=== PATIENT | female | born 1925 | race Caucasian/White ===

== ENCOUNTER 2016-07-17 12:47 | Day surgery (SDC) | payer MEDICARE, BC ==
[~2016-07-17 12:47] MED LIST: ATOR20TA15 PO; BENZ100 PO; CALC1TAB87 PO; CEFT250T8 PO; DENO60P SQ; ISOS30TA3 PO; LEVO75TA3 PO; METO100T9 PO; MIRTA15 PO; XARE15TA PO
[2016-07-17 13:17] VITALS: BP 156/109; PULSE 65; RESP 20; TEMP 97.4; O2SAT 98
[2016-07-17 13:46] LABS: AUTOMATED NEUTROPHIL # 3.6 TH/MM3 (1.8-7.7); BASOPHIL % 0.4 % (0.0-2.0); EOSINOPHIL # 0.1 TH/MM3 (0-0.4); EOSINOPHIL % 2.1 % (0.0-4.0); HEMATOCRIT 34.5 % (35.0-46.0); HEMO FLAGS DIFF FINAL; LYMPH % 33.9 % (9.0-44.0); LYMPHOCYTE # 2.2 TH/MM3 (1.0-4.8); MEAN CELL VOLUME 87.3 FL (80.0-100.0); MEAN CORPUSCULAR HEMOGLOBIN 28.3 PG (27.0-34.0); MEAN CORPUSCULAR HGB CONC 32.5 % (32.0-36.0); MONO % 7.4 % (0.0-8.0); NEUT % 56.2 % (16.0-70.0); PLATELET COUNT 190 TH/MM3 (150-450); RED BLOOD COUNT 3.96 MIL/MM3 (4.00-5.30); RED CELL DISTRIBUTION WIDTH 14.8 % (11.6-17.2); WHITE BLOOD COUNT 6.4 TH/MM3 (4.0-11.0)
[2016-07-17 13:56] LABS: APTT (PATIENT) 26.1 SEC (24.3-30.1); PROTHROMBIN TIME - PATIENT 11.3 SEC (9.8-11.6)
--- NOTE | 2016-07-17 14:12 | RADRPT ---
EXAM DATE/TIME: 07/17/2016 13:38 [facility] COMPARISON: US CAROTID ARTERIES, April 06, 2016, 15:46. EXTERNAL COMPARISON : [facility], CT THORAX, W/O CONTRAST, June 29, 2016 INDICATIONS : Left pleural effusion. MEDICAL HISTORY : Hypertension. Hypercholesterolemia. TIA. Coronary artery disease. Atrial fibrillation. Arthritis. Right breast cancer. SURGICAL HISTORY : Tonsillectomy. Cataract removal. Coronary stent. Right mastectomy. ENCOUNTER: Initial ACUITY: 1 day PAIN SCORE: 0/10 LOCATION: Left chest MEASUREMENTS: SKIN TO PARIETAL PLEURA: 1.5 cm SKIN TO MAX SAFE DEPTH: 3.9 cm ESTIMATED FLUID VOLUME: 406 cc FLUID COMPOSITION: simple FINDINGS: Pleural effusion as above. A omar was placed on the skin surface superficial to the pleural fluid col lection. CONCLUSION: 1. Uncomplicated marking of a pleural effusion as above. Tenzin Brewer MD on July 17, 2016 at 14:10 Board Certified Radiologist. This report was verified electronically.
[2016-07-17 14:45] VITALS: BP 153/100; PULSE 100; RESP 20; TEMP 98.7; O2SAT 100
[2016-07-17] MEDS ORDERED: HEPARIN SODIUM - IV 10,000 UNITS/10 ML VIAL ONE (14:56)
[2016-07-17 15:00] VITALS: BP 165/102; PULSE 69; RESP 20; O2SAT 98
[2016-07-17 15:15] VITALS: BP 164/98; PULSE 89; RESP 20; O2SAT 98
--- NOTE | 2016-07-17 15:23 | RADRPT ---
EXAM DATE/TIME: 07/17/2016 14:52 [facility] COMPARISON: RIBS RIGHT(W PA CXR MIN 3VWS), August 15, 2015, 17:36. INDICATIONS : Post thoracentesis left lung MEDICAL HISTORY : Hypertension. Cardiovascular disease. Carcinoma, breast. A fib, SURGICAL HISTORY : Tonsillectomy. Mastectomy, right. Coronary artery stent. ENCOUNTER: Subsequent ACUITY: 1 day PAIN SCORE: 0/10 LOCATION: Left chest FINDINGS: The heart is mildly enlarged. There is left basal pleural effusion and consolidation. There are COPD changes. Bone window images demonstrate healing fractures of the right posterior seventh and ninth ribs. These are new compared to previous. CONCLUSION: 1. New area of pleural effusion and consolidation in the left lung base. 2. COPD changes. Tenzin Brewer MD on July 17, 2016 at 15:19 Board Certified Radiologist. This report was verified electronically.
--- NOTE | 2016-07-17 16:08 | MR ---
cc: JOAN KING SANDRA L. M.D. DATE 07/17/2016 PROCEDURE Left thoracentesis. PREOPERATIVE DIAGNOSIS Left pleural effusion. PROCEDURE DETAILS Informed consent was obtained from the patient. The procedure and the complications including complications of anesthesia, pneumothorax requiring chest tube, bleeding complications, injury to the blood vessels, lungs, nerves, arrhythmia, hypoxia were explained and she consented for the procedure. The left side of the chest was marked with ultrasound and cleansed with chloraprep. 1% lidocaine infiltrative anesthesia was used. A 16 gauge Angiocath was introduced and thoracentesis was done. Yellow clear fluid was obtained. It was hooked up to vacuum bottle, 150 cc of fluid was removed, then the fluid stopped coming and the procedure was terminated. She tolerated the procedure well. The pleural fluid was sent for protein, glucose, LDH, cell count and differential, routine fungal, AFB, fungal cultures and cytology. A post-procedure chest x-ray ruled out pneumothorax. MD YUKI Urias/CELINA /3:02 PM /3:52 PM
[2016-07-17 16:10] LABS: PLEURAL FLUID LYMPHS 77 %; PLEURAL FLUID PH 8.5
[2016-07-17 16:14] LABS: TOTAL PROTEIN,PLEURAL FLUID 3.7 GM/DL
== END 2016-07-17 15:59 | disposition home or self-care (01) ==
LOC: HROP 12:47 → HRIP 12:53 → HROP 15:59
PROVIDERS: ATTEND Family Medicine
DX: J90 Pleural effusion, not elsewhere classified (principal); J44.9 Chronic obstructive pulmonary disease, unspecified; I25.10 Atherosclerotic heart disease of native coronary artery without angina pectoris; I48.91 Unspecified atrial fibrillation; I10 Essential (primary) hypertension; E78.00 Pure hypercholesterolemia, unspecified; Z95.5 Presence of coronary angioplasty implant and graft; Z85.3 Personal history of malignant neoplasm of breast
CPT/HCPCS: 32554; 71010; 76604; 82150; 82945; 82947; 83615; 83986; 84155; 84157; 85025; 85610; 85730; 87015; 87070; 87102; 87116; 87205; 87206; 88112; 88305; 89051; J1644

== ENCOUNTER 2016-10-03 06:15 | Emergency (ER) | payer MEDICARE, BC ==
[~2016-10-03] VITALS: Ht 170.2 cm; Wt 56.2 kg
[~2016-10-03 06:15] MED LIST changes: -BENZ100 PO; -CEFT250T8 PO; -ISOS30TA3 PO
[2016-10-03 06:17] VITALS: BP 150/92; PULSE 87; RESP 16; TEMP 97.5; O2SAT 96
[2016-10-03] MEDS ORDERED: MEGE40S PO (06:33)
[2016-10-03] MEDS ORDERED: ASPI81CH CHEW (06:33)
--- NOTE | 2016-10-03 06:47 | PD ---
HPI Chief Complaint: Musculoskeletal Complaint Time Seen by Provider: 06:32 Travel History International Travel<30 days: No Contact w/Intl Traveler<30days: No Traveled to known affect area: No History of Present Illness HPI The patient is an 89-year-old female who was walking across the floor of her home yesterday at 8 PM and felt a "click". She then felt pain in the lateral aspect of her left ankle and lateral aspect of her left foot. There was no trauma. It now hurts to bear weight or invert or everted the ankle. 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) Hypertension: Yes Musculoskeletal: Yes (Osteoporosis) Neurologic: Yes Psychiatric: No Respiratory: No Immunizations Current: Yes Myocardial Infarction: No Radiation Therapy: No Thyroid Disease: Yes Tetanus Vaccination: < 5 Years Influenza Vaccination: Yes ?: Not Menopausal: Yes : 6 Para: 5 Miscarriage: 1 Past Surgical History AICD: No Coronary Stent: Yes Endocrine Surgery: Yes Genitourinary Surgery: Yes Gynecologic Surgery: Yes ((R) mastectomy ) Pacemaker: No Tonsillectomy: Yes Social History Alcohol Use: No Tobacco Use: No Substance Use: No Allergies-Medications (Allergen,Severity, Reaction): Coded Allergies: Codeine (Verified Allergy, Severe, Hallucinations, 07/17/16) Gabapentin (Verified Allergy, Severe, Dizziness, 07/17/16) Oxycodone (Verified Allergy, Severe, Hallucinations, 07/17/16) Sulfa (Verified Allergy, Unknown, 10/03/16) MRI PRECAUTION (Verified Adverse Reaction, Unknown, Spinal cord stimulator , no info. 04/06/16 LRS., 07/17/16) Reported Meds & Prescriptions Reported Meds & Active Scripts Active Xarelto (Rivaroxaban) 15 Mg Tab 15 Mg PO DAILY Metoprolol Succinate ER 24 HR (Metoprolol Succinate) 100 Mg Tab 100 Mg PO DAILY@ 1600 Reported Megace Liq (Megestrol Acetate) 40 Mg/Ml Susp 525 Mg PO BID Aspirin 81 Mg Chew 81 Mg CHEW DAILY Prolia Inj (Denosumab) 60 Mg/Ml Inj 60 Mg SQ Q180D Calcium 600 with Vitamin D (Calcium Carbonate-Cholecalciferol) 600-400 mg-Unit Tab 1 Tab PO DAILY Mirtazapine 15 Mg Tab 15 Mg PO HS Atorvastatin (Atorvastatin Calcium) 20 Mg Tab 20 Mg PO HS Levothyroxine (Levothyroxine Sodium) 75 Mcg Tab 75 Mcg PO DIRECTED Review of Systems Except as stated in HPI: all other systems reviewed are Neg Physical Exam Narrative GENERAL: The patient is alert, oriented 3 and slight apparent distress with her left ankle discomfort. Her vital signs show blood pressure 150/92 but otherwise normal. SKIN: Focused skin assessment warm/dry. HEAD: Atraumatic. Normocephalic. EYES: Pupils equal and round. No scleral icterus. No injection or drainage. ENT: No nasal bleeding or discharge. Mucous membranes pink and moist. NECK: Trachea midline. No JVD. CARDIOVASCULAR: Regular rate and rhythm. No murmur appreciated. RESPIRATORY: No accessory muscle use. Clear to auscultation. Breath sounds equal bilaterally. GASTROINTESTINAL: Abdomen soft, non-tender, nondistended. Hepatic and splenic margins not palpable. MUSCULOSKELETAL: No obvious deformities. No clubbing. No cyanosis. No edema. Good capillary refill and pinprick is present distally on the left foot. There is tenderness on the posterior malleolar area and slight tenderness over the proximal fifth metatarsal on the left foot. There is no pain when squeezing the tibia/fibula together on the left. NEUROLOGICAL: Awake and alert. No obvious cranial nerve deficits. Motor grossly within normal limits. Normal speech. PSYCHIATRIC: Appropriate mood and affect; insight and judgment normal. Data Data Last Documented VS Vital Signs Date Time Temp Pulse Resp B/P Pulse Ox O2 Delivery O2 Flow Rate FiO2 10/03/16 06:17 97.5 87 16 150/92 96 Orders Ankle, Complete ([id number]) (10/03/16 06:37) Foot, Complete ([id number]) (10/03/16 06:37) MDM Medical Decision Making Medical Screen Exam Complete: Yes Emergency Medical Condition: Yes Medical Record Reviewed: Yes Differential Diagnosis Ankle sprain, ankle sprain, fracture distal fibula, fracture proximal fifth metatarsal Narrative Course It is now [address] Franklin will be taking over the patient now. José Miguel Waldron MD Oct 03, 2016 06:47
[2016-10-03] MEDS ORDERED: TYLETAB34 PO (08:14)
--- NOTE | 2016-10-03 08:17 | PD ---
Data Data Last Documented VS Vital Signs Date Time Temp Pulse Resp B/P Pulse Ox O2 Delivery O2 Flow Rate FiO2 10/03/16 06:17 97.5 87 16 150/92 96 Orders Ankle, Complete ([id number]) (10/03/16 06:37) Foot, Complete ([id number]) (10/03/16 06:37) Splint Or Brace Apply/Monitor (10/03/16 08:13) MDM Medical Record Reviewed: Yes Supervised Visit with KENNY: No Narrative Course Case is checked out to me by Dr. Waldron at 7 AM. This patient injured her left foot and x-ray was taken I reviewed the left ankle x-rays and the left foot x-rays which both demonstrate a nondisplaced fracture of the left fifth metatarsal I placed her in a posterior short-leg splint She already has a walker at home to use She will ice and elevate and follow-up with orthopedist or radio interference investigator I wrote her 15 pain pills but she says she has very little pain Diagnosis Primary Impression: Fracture of left foot Qualified Code: S92.902A - Fracture of left foot, closed, initial encounter Additional Instruction: The patient was warned about potential sedation for the medications they will receive on prescription. Follow up with radio interference investigator or orthopedist Ice and elevate left foot and limit weightbearing Med/Other Pt SpecificInfo: Prescription(s) given Scripts Acetaminophen-Codeine (Tylenol-Codeine #3)300-30 mg Tab1 Tab PO Q6HR PRN (PAIN) #15 TAB Ref 0 Prov:Danilo Franklin MD 10/03/16 Disposition: 01 DISCHARGE HOME Condition: Stable Danilo Franklin MD Oct 03, 2016 08:17
--- NOTE | 2016-10-03 09:14 | RADHPO ---
EXAM DATE/TIME: 10/03/2016 06:59 [facility] COMPARISON: No previous studies available for comparison. INDICATIONS : Left lateral ankle pain with no known injury. MEDICAL HISTORY : Hypercholesterolemia. Osteoporosis. Arthritis. Thyroid disease. TIA. A-fib. Left ankle fracture. Anemia. Breast cancer. Hypertension. SURGICAL HISTORY : Tonsillectomy. Mastectomy, right. Cardiac cath w/ stent placement. ENCOUNTER: Initial ACUITY: 2 days PAIN SCORE: 10/10 LOCATION: Left lateral ankle FINDINGS: There is evidence of an acute nondisplaced fracture involving the base of the left 5th metatarsal. M ild soft tissue swelling is noted involving the medial and lateral mallei. There is no ankle fractur e. The ankle Mortis is intact. CONCLUSION: 1. Acute nondisplaced fracture involving the base of the left 5th metatarsal. 2. Mild soft tissue swelling involving the medial lateral mallei. Ace Lainez MD on October 03, 2016 at 7:30 Board Certified Radiologist. This report was verified electronically.
--- NOTE | 2016-10-03 09:15 | RADHPO ---
EXAM DATE/TIME: 10/03/2016 07:01 [facility] COMPARISON: No previous studies available for comparison. INDICATIONS : Left lateral foot pain with no known injury. MEDICAL HISTORY : Hypercholesterolemia. Arthritis. Osteoporosis. Thyroid disease. TIA. A-fib. Left ankle fracture. Anemia. Breast cancer. Hypertension. SURGICAL HISTORY : Tonsillectomy. Mastectomy, right. Cardiac cath with stent. ENCOUNTER: Initial ACUITY: 2 days PAIN SCORE: 10/10 LOCATION: Left lateral foot FINDINGS: There is an acute nondisplaced fracture involving the base of the left 5th metatarsal. CONCLUSION: Acute nondisplaced fracture involving the base of the left 5th metatarsal. Ace Lainez MD on October 03, 2016 at 7:32 Board Certified Radiologist. This report was verified electronically.
== END 2016-10-03 08:31 | disposition home or self-care (01) ==
LOC: PHED 06:15
DX: S92.355A Nondisplaced fracture of fifth metatarsal bone, left foot, initial encounter for closed fracture (principal); D64.9 Anemia, unspecified; I48.91 Unspecified atrial fibrillation; E78.00 Pure hypercholesterolemia, unspecified; M81.0 Age-related osteoporosis without current pathological fracture; E07.9 Disorder of thyroid, unspecified; Z86.73 Personal history of transient ischemic attack (TIA), and cerebral infarction without residual deficits; Z79.01 Long term (current) use of anticoagulants; Z95.5 Presence of coronary angioplasty implant and graft; X58.XXXA Exposure to other specified factors, initial encounter; Y93.01 Activity, walking, marching and hiking; Y92.009 Unspecified place in unspecified non-institutional (private) residence as the place of occurrence of the external cause; Y99.8 Other external cause status
CPT/HCPCS: 29515; 73610; 73630